=== PATIENT | female | born 1975 | race Hispanic/Latino ===

== ENCOUNTER 2018-12-15 18:37 | Emergency (ER) | payer BC, SELFPAY ==
[2018-12-15] MEDS ORDERED: Acetaminophen 500 MG TAB ONE (19:10)
[2018-12-15] MEDS ORDERED: Ketorolac Tromethamine 60 MG/2 ML VIAL ONE (19:11)
--- NOTE | 2018-12-15 19:17 | RAD ---
CERVICAL SPINE: 12/15/18 Three views. HISTORY: Neck pain. FINDINGS/IMPRESSION: Cervical vertebrae maintain normal height and alignment. The disc spaces are normally maintained. C7- T1 level not adequately evaluated on the lateral view. The cervical spine is otherwise unremarkable. POS: AGW
== END 2018-12-15 19:45 | disposition home or self-care (01) ==
LOC: NAV ERS 18:37
DX: S13.9XXA Sprain of joints and ligaments of unspecified parts of neck, initial encounter (principal); F41.9 Anxiety disorder, unspecified; F32.9 Major depressive disorder, single episode, unspecified; Z79.899 Other long term (current) drug therapy; V89.2XXA Person injured in unspecified motor-vehicle accident, traffic, initial encounter
CPT/HCPCS: 72040; J1885

== ENCOUNTER 2019-03-03 05:01 | Emergency (ER) | payer OTHER, SELFPAY ==
[2019-03-03] MEDS ORDERED: Ondansetron PF 4 MG/2 ML Vial ONE ×2 (05:27→06:52)
[2019-03-03] MEDS ORDERED: Ketorolac Tromethamine 60 MG/2 ML VIAL ONE (05:27)
[2019-03-03] MEDS ORDERED: Ondansetron ODT 4 MG TAB ONE (05:28)
[2019-03-03 05:50] LABS: #Basophils 0.1 thou/uL (0.0-0.2); #Eosinphils 0.1 thou/uL (0.0-0.7); #Lymphocytes 2.1 thou/uL (1.20-3.40); #Monocytes 0.7 thou/uL (0.11-0.59); #Neutrophils 5.5 thou/uL (1.40-6.50); %Basophils 0.8 % (0.0-1.0); %Eosinophils 1.2 % (0.0-10.0); %Monocytes 8.4 % (0.0-10.0); %Neutrophils 64.6 % (42.0-75.0); Hemoglobin 12.5 g/dL (12.0-16.0); Mean Corpuscular Hemoglobin 29.8 pg (27.0-31.0); Mean Corpuscular Volume 90.4 fL (78.0-98.0); Mean Platelet Volume 11.1 fL (7.4-10.4); Platelet Count 186 thou/uL (130-400); RBC Distribution Width 11.9 % (11.5-14.5); Red Blood Cell (RBC) Count 4.21 mill/uL (4.20-5.40); White Blood Cell (WBC) Count 8.6 thou/uL (4.8-10.8)
[2019-03-03 05:51] LABS: Bilirubin Negative (Negative); Blood, Urine Large (Negative); Clarity Hazy (Clear); Glucose, Urine (Dipstick) Negative (Negative); Leukocyte Negative (Negative); Nitrite Negative (Negative); Protein, Urine (Dipstick) Negative (Neg-Trace); Urobilinogen 0.2 mg/dL (Less than 2)
[2019-03-03 05:52] LABS: Pregnancy Test - Urine (BHCG) Negative (Negative); Pregu Control Background? CLEAR/WHITE (CLR/WHITE); Pregu Control Bar Appear? YES (CONTROL BAR); Specific Gravity 1.025 (1.002-1.036)
[2019-03-03 05:53] LABS: Bacteria/HPF Rare-Few HPF (None Seen); RBC/HPF Greater than 50 HPF (0-3); Squamous Epithelial 0-3 HPF (0-3); WBC/HPF 0-3 HPF (0-3)
[2019-03-03 06:03] LABS: Anion Gap 13 mmol/L (10-20); BUN (Urea Nitrogen) 14 mg/dL (7.0-18.7); Calc. Creatinine Clearance 0 mL/min (70-130); Calcium 8.9 mg/dL (7.8-10.44); Carbon Dioxide 26 mmol/L (22-29); Chloride 106 mmol/L (98-107); Estimated GFR-MDRD 72; Glucose 123 mg/dL (70-105); Potassium 4.1 mmol/L (3.5-5.1); Sodium 141 mmol/L (136-145)
[2019-03-03] MEDS ORDERED: Morphine 4 MG/ML VIAL ONE (06:52)
--- NOTE | 2019-03-03 07:38 | CT ---
CT abdomen and pelvis noncontrast HISTORY: Left flank pain. FINDINGS: No comparison. There is mild distention of the left renal collecting system and the ureter to the level of an oval calculus in the proximal ureter that measures 0.5 cm length by 0.2 cm diameter. The left ureter beyond this point is decompressed without other stone evident. Right renal collecting system, ureter, and urinary bladder are also decompressed without stone apparent. Phleboliths are apparent within the pelvis. Lack of contrast limits evaluation for other abnormalities. No evidence of bowel obstruction. Nonspec ific, reactive appearing lymph nodes throughout the central mesentery and adjacent to the pancreatic head. IMPRESSION: Low-grade obstruction at a 5 mm proximal left ureteral calculus.
== END 2019-03-03 07:55 | disposition home or self-care (01) ==
LOC: NAV ERS 05:01
DX: N20.1 Calculus of ureter (principal); F32.9 Major depressive disorder, single episode, unspecified; F41.9 Anxiety disorder, unspecified; Z79.899 Other long term (current) drug therapy
CPT/HCPCS: 74176; 80048; 81003; 81015; 81025; 85025; 96372; 96374; 96375; J1885; J2270; J2405; Q0162

== ENCOUNTER → 2019-10-26 | Day surgery (SDC) | payer OTHER ==
[~2019-10-26] MED LIST: Multivit, Adult Inj 10 ML VIAL ONE; Ondansetron PF 4 MG/2 ML Vial ONE; Thiamine HCl 200 MG/2 ML VIAL ONE
== END ==
LOC: NAV ER/OP 14:34
PROVIDERS: ATTEND Surgery
DX: E86.0 Dehydration (principal)
CPT/HCPCS: J2405; J3411

== ENCOUNTER 2021-11-24 21:30 | Emergency (ER) | payer BC ==
[2021-11-24] MEDS ORDERED: predniSONE 20 MG TAB ONE (22:07)
== END 2021-11-24 22:20 | disposition home or self-care (01) ==
LOC: NAV ERS 21:30
DX: H10.13 Acute atopic conjunctivitis, bilateral (principal); J30.81 Allergic rhinitis due to animal (cat) (dog) hair and dander
CPT/HCPCS: 99282; J7512

== ENCOUNTER 2022-04-16 19:06 | Emergency (ER) | payer BC ==
[2022-04-16 20:00] LABS: #Basophils 0.1 thou/uL (0.0-0.2); #Eosinphils 0.1 thou/uL (0.0-0.7); #Lymphocytes 2.2 thou/uL (1.20-3.40); #Monocytes 0.6 thou/uL (0.11-0.59); #Neutrophils 5.6 thou/uL (1.40-6.50); %Basophils 0.8 % (0.0-1.0); %Eosinophils 0.9 % (0.0-10.0); %Lymphocytes 25.9 % (21.0-51.0); %Monocytes 6.6 % (0.0-10.0); %Neutrophils 65.9 % (42.0-75.0); Hemoglobin 13.5 g/dL (12.0-16.0); Mean Corpuscular HGB CONC 32.8 g/dL (32.0-36.0); Mean Corpuscular Hemoglobin 31.2 pg (27.0-31.0); Mean Corpuscular Volume 95.1 fl (78.0-98.0); Mean Platelet Volume 10.8 fL (7.4-10.4); Platelet Count 189 10x3/uL (130-400); RBC Distribution Width 12.6 % (11.5-14.5); Red Blood Cell (RBC) Count 4.34 mill/uL (4.20-5.40); White Blood Cell (WBC) Count 8.4 10x3/uL (4.8-10.8)
[2022-04-16 20:16] LABS: Bilirubin Negative (Negative); Blood, Urine Small (Negative); Glucose, Urine (Dipstick) Negative (Negative); Ketone, Urine 15 mg/dL (Negative); Leukocyte Negative (Negative); Nitrite Negative (Negative); Protein, Urine (Dipstick) Negative (Neg-Trace)
[2022-04-16 20:20] LABS: ALT (SGPT) 16 U/L (8-55); AST (SGOT) 15 U/L (5-34); Albumin 3.9 g/dL (3.5-5.0); Alkaline Phosphatase 66 U/L (40-110); Anion Gap 14 mmol/L (10-20); BUN (Urea Nitrogen) 13 mg/dL (7.0-18.7); Bilirubin, Total 0.4 mg/dL (0.2-1.2); Calc. Creatinine Clearance 0 mL/min (70-130); Carbon Dioxide 24 mmol/L (22-29); Chloride 104 mmol/L (98-107); Estimated GFR 78; Globulin 2.7 g/dL (2.4-3.5); Glucose 95 mg/dL (70-105); Potassium 3.7 mmol/L (3.5-5.1); Protein, Total 6.6 g/dL (6.0-8.3); Sodium 138 mmol/L (136-145)
[2022-04-16 20:23] LABS: Clarity SL HAZY (Clear)
[2022-04-16 20:28] LABS: Bacteria/HPF 2+ HPF (None Seen); RBC/HPF 0-3 HPF (0-3); WBC/HPF 0-3 HPF (0-3)
== END 2022-04-16 20:47 | disposition home or self-care (01) ==
LOC: NAV ERS 19:06
DX: F41.1 Generalized anxiety disorder (principal); E86.0 Dehydration; R00.2 Palpitations; T50.5X5A Adverse effect of appetite depressants, initial encounter; E78.5 Hyperlipidemia, unspecified; Z79.899 Other long term (current) drug therapy
CPT/HCPCS: 80053; 81003; 81015; 84484; 85025; 93005; 94760

== ENCOUNTER 2022-08-11 20:46 | Emergency (ER) | payer BC ==
[2022-08-11] MEDS ORDERED: Famotidine/PF 20 mg/2ml Vial ONE (21:44)
[2022-08-11] MEDS ORDERED: methylPREDNISolone Sod Succ/PF 125 MG/2 ML VIAL ONE (21:44)
[2022-08-11 21:59] LABS: #Basophils 0.1 thou/uL (0.0-0.2); #Eosinphils 0.1 thou/uL (0.0-0.7); #Lymphocytes 2.8 thou/uL (1.20-3.40); #Monocytes 0.6 thou/uL (0.11-0.59); #Neutrophils 5.8 thou/uL (1.40-6.50); %Eosinophils 0.8 % (0.0-10.0); %Lymphocytes 30.4 % (21.0-51.0); %Monocytes 6.2 % (0.0-10.0); %Neutrophils 61.6 % (42.0-75.0); Hemoglobin 12.3 g/dL (12.0-16.0); Mean Corpuscular HGB CONC 33.3 g/dL (32.0-36.0); Mean Corpuscular Hemoglobin 30.9 pg (27.0-31.0); Mean Corpuscular Volume 92.6 fl (78.0-98.0); Mean Platelet Volume 10.7 fL (7.4-10.4); Platelet Count 172 10x3/uL (130-400); RBC Distribution Width 12.4 % (11.5-14.5); Red Blood Cell (RBC) Count 3.98 mill/uL (4.20-5.40); White Blood Cell (WBC) Count 9.3 10x3/uL (4.8-10.8)
[2022-08-11 22:15] LABS: ALT (SGPT) 16 U/L (8-55); AST (SGOT) 20 U/L (5-34); Albumin 3.7 g/dL (3.5-5.0); Alkaline Phosphatase 63 U/L (40-110); Anion Gap 13 mmol/L (10-20); BUN (Urea Nitrogen) 18 mg/dL (7.0-18.7); Bilirubin, Total 0.2 mg/dL (0.2-1.2); Calc. Creatinine Clearance 0 mL/min (70-130); Calcium 8.5 mg/dL (7.8-10.44); Carbon Dioxide 22 mmol/L (22-29); Chloride 108 mmol/L (98-107); Estimated GFR 73; Glucose 107 mg/dL (70-105); Potassium 3.8 mmol/L (3.5-5.1); Protein, Total 6.7 g/dL (6.0-8.3); Sodium 139 mmol/L (136-145)
[2022-08-12 00:53] LABS: Troponin I Less than 0.010 ng/mL (< 0.028)
== END 2022-08-12 01:08 | disposition home or self-care (01) ==
LOC: NAV ERS 20:46
DX: T44.5X5A Adverse effect of predominantly beta-adrenoreceptor agonists, initial encounter (principal); E78.5 Hyperlipidemia, unspecified
CPT/HCPCS: 36415; 71045; 80053; 84484; 85025; 93005; 96374; 96375; J2930; S0028

== ENCOUNTER 2024-01-04 02:22 | Emergency (ER) | payer BC, OTHER ==
[2024-01-04] MEDS ORDERED: Ondansetron ODT 4 MG TAB ONE (02:49)
[2024-01-04] MEDS ORDERED: Cyclobenzaprine 10 MG TAB ONE (02:49)
== END 2024-01-04 02:55 | disposition home or self-care (01) ==
LOC: NAV ERS 02:22
DX: M54.2 Cervicalgia (principal)
CPT/HCPCS: 99283; Q0162

== ENCOUNTER 2024-04-18 12:20 | Emergency (ER) | payer OTHER ==
[2024-04-18 13:09] LABS: #Basophils 0.1 thou/uL (0.0-0.2); #Eosinophils 0.1 thou/uL (0.0-0.7); #Lymphocytes 1.7 thou/uL (1.20-3.40); #Monocytes 0.5 thou/uL (0.11-0.59); #Neutrophils 3.4 thou/uL (1.40-6.50); %Basophils 1.2 % (0.0-1.0); %Eosinophils 1.3 % (0.0-10.0); %Lymphocytes 29.5 % (21.0-51.0); %Monocytes 8.5 % (0.0-10.0); %Neutrophils 59.5 % (42.0-75.0); Hematocrit 40.6 % (36.0-47.0); Mean Corpuscular Hemoglobin 29.4 pg (27.0-31.0); Mean Corpuscular Volume 91.8 fl (78.0-98.0); Platelet Count 231 10x3/uL (130-400); RBC Distribution Width 11.7 % (11.5-14.5); Red Blood Cell (RBC) Count 4.42 mill/uL (4.20-5.40); White Blood Cell (WBC) Count 5.7 10x3/uL (4.8-10.8)
[2024-04-18 13:15] LABS: Bilirubin Negative (Negative); Blood, Urine Moderate (Negative); Glucose, Urine (Dipstick) Negative (Negative); Ketone, Urine Negative (Negative); Leukocyte Small (Negative); Nitrite Negative (Negative); Protein, Urine (Dipstick) Trace mg/dL (Neg-Trace); Specific Gravity, Urine 1.015 (1.005-1.030); Urobilinogen 0.2 mg/dL (Less than 2)
[2024-04-18 13:18] LABS: Bacteria/HPF 2+ HPF (None Seen); CAUTI Indications for Culture Alt mental st,lethar; Clarity Hazy (Clear); RBC/HPF 0-3 HPF (0-3); WBC/HPF 0-3 HPF (0-3)
[2024-04-18 13:20] LABS: Urine Culture Reflex No No
[2024-04-18 13:21] LABS: Anion Gap 10 mmol/L (10-20); BUN (Urea Nitrogen) 11 mg/dL (7.0-18.7); Calc. Creatinine Clearance 0 mL/min (70-130); Calcium 8.9 mg/dL (7.8-10.44); Carbon Dioxide 29 mmol/L (22-29); Chloride 101 mmol/L (98-107); Estimated GFR 74; Glucose 90 mg/dL (70-105); Potassium 3.7 mmol/L (3.5-5.1); Sodium 136 mmol/L (136-145)
== END 2024-04-18 14:39 | disposition home or self-care (01) ==
LOC: NAV ERS 12:20
DX: I95.1 Orthostatic hypotension (principal)
CPT/HCPCS: 80048; 81001; 85025; 99284